=== PATIENT | male | born 1960 | race Hispanic/Latino ===

== ENCOUNTER 2019-07-21 20:42 | Emergency (ER) | payer OTHER, SELFPAY ==
[2019-07-21 21:17] LABS: #Basophils 0.1 thou/uL (0.0-0.2); #Eosinphils 0.3 thou/uL (0.0-0.7); #Lymphocytes 2.1 thou/uL (1.20-3.40); #Monocytes 0.6 thou/uL (0.11-0.59); #Neutrophils 6.1 thou/uL (1.40-6.50); %Basophils 1.3 % (0.0-1.0); %Eosinophils 2.8 % (0.0-10.0); %Lymphocytes 22.9 % (21.0-51.0); %Monocytes 6.1 % (0.0-10.0); %Neutrophils 66.9 % (42.0-75.0); Hemoglobin 14.6 g/dL (14.0-18.0); Mean Corpuscular HGB CONC 32.3 g/dL (32.0-36.0); Mean Corpuscular Hemoglobin 28.7 pg (27.0-31.0); Mean Corpuscular Volume 88.6 fL (78.0-98.0); Mean Platelet Volume 8.2 fL (7.4-10.4); Platelet Count 215 thou/uL (130-400); RBC Distribution Width 13.2 % (11.5-14.5); Red Blood Cell (RBC) Count 5.08 mill/uL (4.70-6.10)
--- NOTE | 2019-07-21 21:19 | RAD ---
RADIOGRAPH CHEST 1 VIEW: DATE: 07/21/2019 TIME: 9:16 PM HISTORY: 49-year-old male with tachycardia COMPARISON: 11/11/2013 FINDINGS: New finding of faint, small infiltrate at left lung base. Uncertain whether this is acute, or a chron ic finding that developed sometime after the prior radiograph of 2013. Cardiac mediastinal silhouette is normal. The rest of the lungs are clear. No pneumothorax. IMPRESSION: Small infiltrate-like density at left lung base.
[2019-07-21 21:36] LABS: ALT (SGPT) 25 U/L (8-55); AST (SGOT) 18 U/L (5-34); Albumin 4.4 g/dL (3.5-5.0); Alkaline Phosphatase 108 U/L (40-110); Anion Gap 15 mmol/L (10-20); BUN (Urea Nitrogen) 18 mg/dL (8.9-20.6); Bilirubin, Total 0.4 mg/dL (0.2-1.2); Calc. Creatinine Clearance 0 mL/min (70-130); Calcium 9.3 mg/dL (7.8-10.44); Carbon Dioxide 21 mmol/L (22-29); Chloride 109 mmol/L (98-107); Estimated GFR-MDRD 79; Globulin 3.5 g/dL (2.4-3.5); Glucose 127 mg/dL (70-105); Protein, Total 7.9 g/dL (6.0-8.3); Sodium 141 mmol/L (136-145)
== END 2019-07-21 22:56 | disposition home or self-care (01) ==
LOC: EDBD 20:42 → MADERS 20:42
DX: R00.2 Palpitations (principal)
CPT/HCPCS: 71045; 80053; 84443; 84484; 85025; 93005